=== PATIENT | male | born 1955 | race Caucasian/White ===

== ENCOUNTER 2021-09-14 05:18 | Inpatient (IN) | payer BC, OTHER ==
[~2021-09-14] VITALS: Ht 167.6 cm; Wt 59.0 kg
[~2021-09-14 05:18] MED LIST: HYDROCODON-ACE1 EAC4 PO; IPRAT-ALBUT 0.5-3 ML NEB
[2021-09-14 05:37] LABS: HEMOGLOBIN 16.6 gm/dl (14.0-17.5); RED BLOOD COUNT 4.82 M/UL (4.20-5.50); WHITE BLOOD COUNT 18.4 K/UL (4.5-11.0)
[2021-09-14 06:04] LABS: BUN/CREATININE RATIO 24 (0-10)
[2021-09-14] MEDS ORDERED: PROAIR HFA8.5 GM INH (09:49)
[2021-09-14] MEDS ORDERED: LISINOPRIL20 MG PO (09:49)
[2021-09-14] MEDS ORDERED: ALBUTEROL2.5 MG/3 M INH (09:49)
[2021-09-14] MEDS ORDERED: IPRAT-ALBUT 0.5-3 ML INH (09:49)
[2021-09-15 01:23] LABS: HEMOGLOBIN 12.4 gm/dl (14.0-17.5); RED BLOOD COUNT 3.74 M/UL (4.20-5.50); WHITE BLOOD COUNT 9.2 K/UL (4.5-11.0)
[2021-09-15 01:53] LABS: BUN/CREATININE RATIO 22 (0-10)
[2021-09-16 01:42] LABS: HEMOGLOBIN 12.4 gm/dl (14.0-17.5); RED BLOOD COUNT 3.7 M/UL (4.20-5.50); WHITE BLOOD COUNT 10.1 K/UL (4.5-11.0)
[2021-09-16 02:02] LABS: BUN/CREATININE RATIO 25 (0-10)
[2021-09-16] MEDS ORDERED: PREDNISONE 5 MG5 MG PO (09:41)
[2021-09-16] MEDS ORDERED: CARDIZEM 30MG T30 MG PO (09:41)
[2021-09-16] MEDS ORDERED: AMOX TR-K CLV1 EAC4 PO (09:41)
[2021-09-16] MEDS ORDERED: BUDESONIDE0.5 MG/2 M NEB (09:41)
[2021-09-16] MEDS ORDERED: IPRAT-ALBUT 0.5-3 ML INH (09:41)
--- NOTE | 2021-09-16 12:59 | NUR ---
ROOM AIR SATURATION 85% WITH AMBULATION
== END 2021-09-16 14:58 | disposition home or self-care (01) | DRG 871 ==
LOC: ER1 05:18 → CDU 06:24 → PROG CARE 06:24
PROVIDERS: Family Medicine; Internal Medicine; ADMIT Internal Medicine
PROC: 5A09457 Assistance with Respiratory Ventilation, 24-96 Consecutive Hours, Continuous Positive Airway Pressure (ICD-10-PCS; principal; 2021-09-14)
PROC: 3E03329 Introduction of Other Anti-infective into Peripheral Vein, Percutaneous Approach (ICD-10-PCS; 2021-09-14)
PROC: 5A09357 Assistance with Respiratory Ventilation, Less than 24 Consecutive Hours, Continuous Positive Airway Pressure (ICD-10-PCS; 2021-09-15)
PROC: 5A09357 Assistance with Respiratory Ventilation, Less than 24 Consecutive Hours, Continuous Positive Airway Pressure (ICD-10-PCS; 2021-09-16)
DX: A41.9 Sepsis, unspecified organism (principal); J18.9 Pneumonia, unspecified organism; Z20.822 Contact with and (suspected) exposure to COVID-19; G93.41 Metabolic encephalopathy; J96.21 Acute and chronic respiratory failure with hypoxia; J96.22 Acute and chronic respiratory failure with hypercapnia; E87.2 Acidosis; J20.9 Acute bronchitis, unspecified; R73.9 Hyperglycemia, unspecified; R65.20 Severe sepsis without septic shock; J43.9 Emphysema, unspecified; I10 Essential (primary) hypertension; Z91.14 Patient's other noncompliance with medication regimen; Z87.891 Personal history of nicotine dependence; Z99.81 Dependence on supplemental oxygen; Z91.038 Other insect allergy status
CPT/HCPCS: 0240U; 36415; 36600; 71045; 80048; 80053; 82550; 82553; 82803; 82962; 83036; 83605; 83880; 84484; 85025; 85730; 86140; 87040; 87070; 87077; 87186; 87205; 93005; 94640; 94660; 94664; 94760; 96374; 96375; 99285; J0456; J0696; J1650; J2405; J2920; J7030; Q9967